=== PATIENT | male | born 2000 | race Caucasian/White ===

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

== ENCOUNTER 2022-02-14 19:39 | Emergency (ER) | payer OTHER, SELFPAY ==
--- NOTE | ~2022-02-14 | CT_ITS ---
EXAMINATION: CT soft tissue neck wo con DATE: 02/14/2022 20:41 INDICATION: Palpable lump right side of neck anteriorly. TECHNIQUE: Computed tomography (CT) of the neck was performed with 75 mL Omnipaque-350 intravenous co ntrast. The dose-length product was 369.67 mGy-cm. Automated exposure control and iterative reconstru ction technique were employed. COMPARISON: None FINDINGS: There is asymmetric pathologic lymph node enlargement on the right level 2, 4 and 5, corres ponding to the area of interest marked by radiopaque marker. No evidence for abscess. Mucosal spaces unremarkable. No parapharyngeal space abnormality. No evidence for tonsillar enlargement or peritonsi llar abscess. Lung apices are normal. Small mucus retention cyst right maxillary sinus. No acute osse ous abnormality. IMPRESSION: 1. Right cervical lymphadenopathy, nonspecific. No evidence for abscess. Reviewed, dictated and finalized at location A.
[2022-02-14 19:54] VITALS: BP 130/79; PULSE 93; RESP 18; TEMP 36.6; O2SAT 98
[2022-02-14 20:40] LABS: Hematocrit 40.1 % (40.0-54.0); Hemoglobin 13.6 g/dL (14.0-18.0); Immature Platelet Fraction Pct 3.3 % (1.0-7.0); Mean Corpuscular HGB Conc 33.9 g/dL (32.0-36.0); Mean Corpuscular Hemoglobin 29.2 pg (27.0-31.0); Mean Corpuscular Volume 86.2 fL (78.0-102.0); Mean Platelet Volume 10.7 fl (8.7-11.0); Platelet Count Result 118 K/mm3 (150-420); Red Blood Count 4.65 M/mm3 (4.70-6.10); Red Cell Distribution Width 12.9 % (11.6-14.4); White Blood Count 5.8 K/mm3 (4.8-10.8)
[2022-02-14 20:52] LABS: Strep Group A RT-PCR Negative (Negative)
[2022-02-14 20:53] LABS: Alanine Aminotransferase 137 U/L (16-63); Alkaline Phosphatase 203 U/L (65-260); Anion Gap 6 mmol/L (8-16); Aspartate Amino Transferase 81 U/L (15-37); Blood Urea Nitrogen 8 mg/dL (7-18); Calcium 8.7 mg/dL (8.5-10.1); Carbon Dioxide 30 mmol/L (21-32); Chloride 102 mmol/L (98-108); Estimated Glomerular Filt Rate > 60; Glucose 103 mg/dL (70-99); Osmolality Calculated 284 mOsm/kg (285-295); Potassium 3.7 mmol/L (3.5-5.1); Sodium 138 mmol/L (136-145); Total Protein 7.1 g/dL (6.4-8.2)
[2022-02-14 22:00] LABS: Band Neutrophils Percent 0 % (0-6); Lymphocytes Absolute Manual 4.29 K/mm3 (1.1-4.5); Lymphocytes Percent Manual 74 % (18-44); Monocytes Absolute Manual 0.23 K/mm3 (0.1-0.90); Monocytes Percent Manual 4 % (3-9); Neutrophils Absolute Manual 1.27 K/mm3 (1.3-6.7); Neutrophils Percent Manual 22 % (46-73); Smudge Cells PRESENT; Total Cells Counted 100
[2022-02-14 22:01] LABS: Large Platelets Present; Platelet Estimate Adequate (Adequate); Schistocytes None Seen (NORMAL)
--- NOTE | 2022-02-14 22:19 | ED.NECK ---
HPI - Neck Pain/Injury General Chief Complaint: Neck Pain/Injury Stated Complaint: Lump in neck causing pain in ear and neck Source: patient Mode of arrival: ambulatory Limitations: no limitations History of Present Illness HPI Narrative: This is a 21-year-old gentleman that presents with his mother and sister with right lateral neck swelling pain and discomfort with warmth and tenderness was seen by his primary care physician and started on amoxicillin for a presumed lymphadenitis/cellulitis. Patient continued to have pain and discomfort with swelling in the right lateral neck and presented to the emergency department. There is no sore throat no swollen tonsils no fever chills no nausea vomiting or shortness of breath. complaint: neck pain Onset (ago): day(s) Place: home Severity: mild Related Data Home Medications Medication Instructions Recorded Confirmed amoxicillin 875 mg tablet 875 mg PO DAILY 02/14/22 02/14/22 Allergies Allergy/AdvReac Type Severity Reaction Status Date / Time No Known Allergies Allergy Verified 02/14/22 19:51 Review of Systems Review of Systems: All systems reviewed & are unremarkable except as noted in HPI and below PMFSH Past Medical History Medical History Patient denies medical problems Exam Const: General: healthy appearing and no acute distress Nutritional Appearance: well nourished Limitations: no limitations HENMT: Head: normal to inspection Other: right lateral neck swollen and tender to touch Eyes: Conjunctivae: conjunctivae normal Pupils: Equal, round and reactive pupils present Direct Ophthalmoscopy: no photophobia Neck: Neck: lymphadenopathy Chest: Chest palpation & inspection: normal inspection of the chest Resp: Effort & Inspection: normal respiratory effort Auscultation: clear to auscultation bilaterally Cardio: Rate: regular rate Rhythm: regular rhythm GI: GI Palp: Yes Soft to palpation Auscultation: normal bowel sounds Skin: General skin exam: normal color Rashes: no rashes Other: swollen tender right lateral neck with some palpable lymph node Neuro: General: patient oriented x3 and moves all extremities Cranial nerves: Yes Nystagmus not present Speech: normal speech Extrem: General: normal to inspection and no clubbing, cyanosis or edema Psych: Mental Status: mental status grossly normal Affect: normal affect Course Course Emergency Course: labs reviewed with patient and family, the patient did had a elevated lymphocyte count and recommended to family to follow-up with primary care physician to have that repeated in the next couple of weeks. Reviewed the CT scan of the neck which showed lymphadenitis with surrounding cellulitis. Advised to discontinue amoxicillin and will give a dose of Augmentin here in the emergency department. Vital Signs Vital signs: Vital Signs Temperature 36.6 C 02/14/22 19:54 Pulse Rate 93 02/14/22 19:54 Respiratory Rate 18 02/14/22 19:54 Blood Pressure 130/79 02/14/22 19:54 Pulse Oximetry 98 02/14/22 19:54 Oxygen Delivery Room Air 02/14/22 19:54 Temperature 36.6 C 02/14/22 19:54 Pulse Rate 93 02/14/22 19:54 Respiratory Rate 18 02/14/22 19:54 Blood Pressure 130/79 02/14/22 19:54 Pulse Oximetry 98 02/14/22 19:54 Oxygen Delivery Room Air 02/14/22 19:54 MDM - Neck Pain/Injury Lab Data Result diagrams: 02/14/22 20:33 02/14/22 20:33 Labs: Lab Results 02/14/22 02/14/22 02/14/22 Range/Units 19:44 20:23 20:33 WBC 5.8 (4.8-10.8) K/mm3 RBC 4.65 L (4.70-6.10) M/mm3 Hgb 13.6 L (14.0-18.0) g/dL Hct 40.1 (40.0-54.0) % MCV 86.2 (78.0-102.0) fL MCH 29.2 (27.0-31.0) pg MCHC 33.9 (32.0-36.0) g/dL RDW 12.9 (11.6-14.4) % Plt Count 118 L (150-420) K/mm3 MPV 10.7 (8.7-11.0) fl Immature Gran % (Auto) Not Reportable Juan
[2022-02-14] MEDS: AMOXICILLIN/CLAVULANATE K 875-125 MG TAB 1 TABLET PO (22:26)
[2022-02-14 22:36] VITALS: BP 118/78; PULSE 88; RESP 18; O2SAT 99
[2022-02-18 11:10] LABS: Monoscreen Positive (Negative); Negative Monotest Control Negative (Negative); Positive Monotest Control Positive (Positive)
== END 2022-02-14 22:36 | disposition home or self-care (01) ==
LOC: CHSED 22:25
PROVIDERS: Emergency Provider Emergency Medicine; PCP Family Medicine
DX: I88.9 Nonspecific lymphadenitis, unspecified (principal); L03.90 Cellulitis, unspecified; J02.9 Acute pharyngitis, unspecified
CPT/HCPCS: 36415; 70490; 80053; 85025; 85055; 86308; 87651; 99284; A9270

== ENCOUNTER 2023-06-17 14:30 | Outpatient (CLI) | payer BC, SELFPAY ==
--- NOTE | ~2023-06-17 | XR_ITS ---
EXAMINATION: XR lumbar spine 2-3V DATE: 06/17/2023 14:49 INDICATION: Low back pain. TECHNIQUE: 3 views of lumbar spine on 4 radiographs were obtained. COMPARISON: None. FINDINGS: Bone alignment is normal. Vertebral body heights and intervertebral disc heights are normal . The facet joints are unremarkable. IMPRESSION: 1. Normal lumbar spine. Reviewed, dictated and finalized at location E. [employer] SALES IMPRESSION: 1. Normal lumbar spine.
== END 2023-06-17 14:31 | disposition home or self-care (01) ==
PROVIDERS: PCP Family Medicine; Visit Provider Family Medicine
DX: M54.50 Low back pain, unspecified (principal)
CPT/HCPCS: 72100

== ENCOUNTER 2024-01-07 10:23 | Outpatient (CLI) | payer BC, SELFPAY ==
--- NOTE | ~2024-01-07 | XR_ITS ---
EXAMINATION: XR chest 2V 01/07/2024 10:35 INDICATION: Chest pain and shortness of breath PROCEDURE: 2 view chest COMPARISON: 08/30/2014 FINDINGS: The lungs are clear. The cardiomediastinal silhouette is within normal limits. There are no pleural effusions. There is no pneumothorax suspected. IMPRESSION: 1: NO ACUTE CARDIOPULMONARY DISEASE. Reviewed, dictated and finalized at location B.
== END 2024-01-07 10:24 | disposition home or self-care (01) ==
LOC: CHSIMG 10:26
PROVIDERS: PCP Family Medicine; Visit Provider Family Medicine
DX: R07.9 Chest pain, unspecified (principal)
CPT/HCPCS: 71046